=== PATIENT | female | born 2000 | race Caucasian/White ===

== ENCOUNTER 2023-09-20 01:29 | Emergency (ER) | payer MEDICAID ==
[~2023-09-20] VITALS: Ht 170.2 cm; Wt 78.0 kg
[2023-09-20 01:33] VITALS: O2SAT 100
[2023-09-20 01:40] VITALS: BP 133/82; PULSE 146; RESP 18; TEMP 98.2
== END 2023-09-20 04:37 | disposition home or self-care (01) ==
LOC: ER 01:29
DX: F10.129 Alcohol abuse with intoxication, unspecified (principal); Y90.9 Presence of alcohol in blood, level not specified
CPT/HCPCS: 81025; 99283